=== PATIENT | female | born 1955 | race Caucasian/White ===

== ENCOUNTER → 2020-02-10 | Outpatient (CLI) | payer OTHER ==
[2020-02-10 08:40] LABS: ALKALINE PHOSPHATASE 84 U/L (46-116); ALT/SGPT 24 U/L (14-59); AST/SGOT 13 U/L (15-37); BILIRUBIN TOTAL 0.28 mg/dL (0.20-1.00); CALCIUM 8.8 mg/dL (8.5-10.1); CARBON DIOXIDE 29.5 mmol/L (21-32); CHLORIDE SERUM 106 mmol/L (98-107); CREATININE SERUM 0.8 mg/dL (0.6-1.0); GFR1 > 60 mL/min; GLUCOSE SERUM 85 mg/dL (74-106); POTASSIUM SERUM 3.7 mmol/L (3.5-5.1); SODIUM SERUM 142 mmol/L (136-145); TOTAL PROTEIN, SERUM 6.9 g/dL (6.4-8.2)
[2020-02-10 08:41] LABS: ALBUMIN 3.1 g/dL (3.4-5.0)
[2020-02-10 08:54] LABS: T3 TOTAL 1.36 ng/mL
[2020-02-10 09:04] LABS: BASOPHIL % 0.4 % (0-2); RED CELL DISTRIBUTION WIDTH 12.6 % (11.5-14.5)
[2020-02-10 09:05] LABS: PLATELET COUNT 417 x10^3mcL (130-400)
[2020-02-10 09:18] LABS: FREE T4 1.04 ng/dL (0.76-1.46); FREE THYROXINE INDEX 2.4 ug/dL (1.4-4.5); T4(THYROXINE) 7.3 ug/dL (4.7-13.3)
== END | disposition home or self-care (01) ==
LOC: MA 07:55
PROVIDERS: ATTEND Family Medicine
DX: Z12.31 Encounter for screening mammogram for malignant neoplasm of breast (principal); Z86.79 Personal history of other diseases of the circulatory system
CPT/HCPCS: 77067; 84439

== ENCOUNTER → 2020-03-17 | Outpatient (CLI) | payer OTHER | END | disposition home or self-care (01) | LOC: US 03-10 09:30 | PROC: BH42ZZZ Ultrasonography of Bilateral Breasts (ICD-10-PCS; principal; 2020-03-17) | PROC: BW40ZZZ Ultrasonography of Abdomen (ICD-10-PCS; 2020-03-17) | DX: N63.0 Unspecified lump in unspecified breast (principal) | CPT/HCPCS: 76641 ==

== ENCOUNTER → 2020-05-05 | Outpatient (CLI) | payer OTHER ==
[2020-05-05 09:05] LABS: CHOLESTEROL/HDL RATIO 2.3
== END | disposition home or self-care (01) ==
LOC: LB 08:20
DX: E78.5 Hyperlipidemia, unspecified (principal)

== ENCOUNTER 2020-05-18 06:57 | Day surgery (SDC) | payer OTHER ==
[~2020-05-18] VITALS: Ht 167.6 cm; Wt 86.2 kg
[2020-05-18 07:34] VITALS: BP 115/67
[2020-05-18 15:55] VITALS: BP 108/72
== END 2020-05-18 12:15 | disposition home or self-care (01) ==
LOC: DS 06:57 → GI 09:00 → OR 09:00 → DS 12:15
PROVIDERS: ATTEND Internal Medicine Gastroenterology
DX: Z12.11 Encounter for screening for malignant neoplasm of colon (principal); K57.30 Diverticulosis of large intestine without perforation or abscess without bleeding; E66.01 Morbid (severe) obesity due to excess calories; Z68.30 Body mass index [BMI] 30.0-30.9, adult
CPT/HCPCS: 45378; J1200; J1610; J2250; J2310; J3010; J3490; U0003